=== PATIENT | male | born 2000 | race Caucasian/White ===

== ENCOUNTER 2021-05-07 03:28 | Outpatient (CLI) | payer MEDICAID, SELFPAY ==
[2021-05-08 01:27] LABS: COVID-19 RT-PCR UVMMC Result Negative (Negative)
== END 2021-05-07 03:29 | disposition home or self-care (01) ==
LOC: LBO 03:28
PROVIDERS: Visit Provider Nurse Practitioner Family
DX: Z20.822 Contact with and (suspected) exposure to COVID-19 (principal)
CPT/HCPCS: U0003

== ENCOUNTER 2022-12-30 17:48 | Outpatient (REF) | payer MEDICAID, SELFPAY ==
[2022-12-30 23:19] LABS: Abs Immature Grans 0.04 10^3/uL (0.0-0.06); Absolute Basophil Count 0.05 10^3/uL (0.0-0.2); Absolute Eosinophil Count 0.01 10^3/uL (0.0-0.7); Absolute Lymphocyte Count 0.87 10^3/uL (1.2-3.4); Absolute Monocyte Count 0.55 10^3/uL (0.1-0.8); Absolute Neutrophil Count 5.34 10^3/uL (1.2-6.7); Basophils % 0.7; Eosinophils % 0.1; HCT 45.4 % (40.0-50.0); HGB 16.2 g/dL (13.5-17.5); Immature Grans % 0.6; Lymphocytes % 12.7; MCHC 35.7 % (32.0-36.0); MCV 87 fL (80-95); MPV 9.8 fL (8.0-11.0); Neutrophils % 77.9; Platelet Count 225 10^3/uL (130-400); RBC 5.23 10^6/uL (4.36-5.78); RDW 11.6 % (11.8-14.1); RDW-SD 36.7 fL; WBC 6.86 10^3/uL (4.4-10.8)
[2023-01-02 10:05] LABS: Lyme Ab w Rflx to Lyme Confirm Negative (Negative)
[2023-01-04 17:19] LABS: Anaplasma phagocytophilum Negative (Negative); B. miyamotoi PCR Negative (Negative); Babesia divergens/MO-1 Negative (Negative); Babesia duncani Negative (Negative); Babesia microti Negative (Negative); Ehrlichia chaffeensis Negative (Negative); Ehrlichia ewingii/canis Negative (Negative); Ehrlichia muris eauclairensis Negative (Negative)
== END 2022-12-30 17:49 | disposition home or self-care (01) ==
LOC: LBN 17:48
PROVIDERS: Visit Provider Physician Assistant
DX: J02.9 Acute pharyngitis, unspecified (principal)
CPT/HCPCS: 87798; 85025; 86618; 87070